=== PATIENT | male | born 1945 | race Caucasian/White ===

== ENCOUNTER → 2020-01-04 11:41 | Outpatient (CLI) | payer OTHER, SELFPAY ==
[2020-01-05 03:43] LABS: COVID19 Sendout Not Detected (Not Detect)
== END ==
PROVIDERS: PCP Family Medicine; Visit Provider Physician Assistant
DX: Z01.812 Encounter for preprocedural laboratory examination (principal)
CPT/HCPCS: 87635

== ENCOUNTER 2020-01-07 12:27 | Day surgery (SDC) | payer OTHER, SELFPAY ==
[2020-01-05 12:32] VITALS: BMI 28.6
[2020-01-07] VITALS (8 sets, daily range): BP systolic 127–156; BP diastolic 71–91; PULSE 75–105; RESP 9–21; TEMP 35.9–36.7; O2SAT 90–97; BMI 28.6
[2020-01-07] MEDS: LACTATED RINGERS 1,000 ML 42 ML IV (12:58)
[2020-01-07] MEDS: CELECOXIB 200 MG CAPSULE 400 MG PO (13:02)
[2020-01-07] MEDS: GABAPENTIN 300 MG CAPSULE PO (13:02)
[2020-01-07] MEDS: ACETAMINOPHEN 325 MG TABLET 975 MG PO (13:02)
--- NOTE | 2020-01-07 13:30 | PM.PREOP ---
Pre-operative Note COVID-19 COVID-19 status: Negative Result date/Date tested (Pos, Neg/Pending): 01/04/20 Interval Note History & Physical reviewed/Exam performed by Physician: Yes Changes to H&P: No
[2020-01-07] MEDS: CEFAZOLIN 2 GM/100 ML FROZ.PIGGY IV (13:40)
--- NOTE | 2020-01-07 14:02 | SUR.OPER ---
Supine on padded OR bed, head on pillow, arms secured on padded arm boards at <90 degrees abduction, legs uncrossed, safety belt at thigh, tape over blanket over lower legs.
[2020-01-07] MEDS: BUPIVACAINE LIPOSOME 266 MG/20 ML VIAL INJ (14:07)
[2020-01-07] MEDS: BUPIVACAINE 0.25% W/ EPI 30 ML VIAL INJ (14:08)
--- NOTE | 2020-01-07 14:54 | PM.OP.1 ---
Operative Date/Time/Diagnoses Date of procedure: 01/07/20 Time of procedure: 14:54 Pre-op diagnosis: recurrent ventral incisional hernia Post-op diagnosis: same Procedure & Clinicians Procedure: Open repair of incarcerated recurrent ventral incisional hernia with mesh Same procedure as scheduled: Yes Indications: 74 yo man with abdominal pain and supraumbilical bulge with history of primary umbilical hernia repair Surgeon: Jeri Kaur Click Yes if Unassisted: Yes Anesthesia Type: General Operative Notes Findings: two hernias along the incisional closure from the prior umbilical hernia repair Specimen(s): none sent Prosthetic devices, grafts, tissues, transplants, or devices: BARD 4.3cm ventral patch Estimated Blood Loss (mL): 1 Procedure in detail: The patient was brought into the OR, placed supine on the OR table, and appropriate preoperative antibiotics were given. Sequential compression devices were placed on both legs and turned on. General anesthesia was induced and the patient was intubated with an LMA by the anesthesiologist. The abdomen was prepped and draped in sterile fashion for umbilical incision. A surgical time out was conducted. Local anesthetic was infiltrated into the skin and a 15 blade was used to make curvilinear incision along the superior fold of the umbilicus. Dissection was carried down to through the dermis and subcutaneous fat until a hernia sac was encountered. Old scar tissue and Ethibond sutures were found and the hernia was found to be coming through the prior incision for the prior umbilical repair, making this a recurrent incisional ventral hernia. Dissection was carried down to the fascia, and the hernia sac was opened. Incarcerated omentum was found within the hernia sac. It was dissected free and passed off the table. Once the hernia defect was dissected out it was measured and found to be 1cm x 2cm in size. I cleared a space posterior to the fascia for placement of the 4.3cm BARD ventral hernia patch. The patch was positioned within the defect and secured in place with 2-0 PDS suture. I injected 30mL of local anesthetic with 0.25% Marcaine with epi, followed by 20mL of Exparel into the fascia. I then secured the mesh to the fascia and closed the defect over the mesh with the 2-0 PDS suture. I then closed the subcutaneous tissue with 3-0 Vicryl suture and closed the skin with 4-0 Mocryl. The skin edges were sealed with Dermabond. Once dry two cotton balls were placed in the umbilicus and secured with Tegaderm. The patient was awakened from anesthesia and extubated. He tolerated the procedure well. Needle, sponge and instrument counts were correct x 2. The patient was transferred to PACU in stable condition. Complications: none Post-operative Condition: stable Disposition: PACU
--- NOTE | 2020-01-07 15:04 | SUR.PHASEI ---
Assumed care. Eloy eyes pink and weepy, patient reported this is normal.
--- NOTE | 2020-01-07 15:17 | SUR.PHASEI ---
Dr. Crandall notified HR low 100s with bundle branch block. No new orders.
--- NOTE | 2020-01-07 16:19 | SUR.PHASEII ---
Discharged patient home in stable condition with significant other. Denies pain at discharge. All belongings returned to patient. Escorted patient to ER entrance via wheelchair.
== END 2020-01-07 16:20 | disposition home or self-care (01) ==
PROVIDERS: PCP Family Medicine; Referring Provider Surgery; Visit Provider Surgery
PROC: (CPT 49566; principal; 2020-01-07 14:15)
DX: K43.0 Incisional hernia with obstruction, without gangrene (principal); I10 Essential (primary) hypertension; K21.9 Gastro-esophageal reflux disease without esophagitis
CPT/HCPCS: 49566; 49568; C1781; C9290; J0330; J0690; J1100; J2405; J2704; J3010